=== PATIENT | female | born 1970 | race Hispanic/Latino ===

== ENCOUNTER 2018-02-01 10:51 | Emergency (ER) | payer MEDICAID, OTHER ==
[2018-02-01 11:18] VITALS: BMI 23.3
--- NOTE | 2018-02-01 11:37 | ED PDOC ---
Arrival/HPI - General Chief Complaint: Trauma Time Seen by Provider: 02/01/18 11:35 Historian: Patient - History of Present Illness Narrative History of Present Illness (Text): 02/01/18 11:33 A 47 year old female, with no significant past medical history, whom is accompanied by daughter, presents to the emergency department complaining of right-sided rib pain s/p mechanical fall. Patient reports 2 days ago, having tripped and landing onto right side. Notes experiencing pain when coughing and having difficulty getting up. Patient denies any LOC, head trauma, abdominal pain, nausea, vomiting, difficulty ambulating, or any other complaints at this time. No PMD Time/Duration: < week (2 days ago) Symptom Onset: Sudden Symptom Course: Unchanged Past Medical History - Provider Review Nursing Documentation Reviewed: Yes - Infectious Disease Hx of Infectious Diseases: None - Tetanus Immunization Tetanus Immunization: Unknown - Psychiatric Hx Depression: No Hx Emotional Abuse: No Hx Physical Abuse: No Hx Substance Use: No - Surgical History Other/Comment: kidney stone removal 20 years ago - Anesthesia Hx Anesthesia: Yes Hx Anesthesia Reactions: No Hx Malignant Hyperthermia: No - Suicidal Assessment Feels Threatened In Home Enviroment: No Family/Social History - Physician Review Nursing Documentation Reviewed: Yes Family/Social History: No Known Family HX Smoking Status: Never Smoked Hx Alcohol Use: No Hx Substance Use: No Allergies/Home Meds Allergies/Adverse Reactions: Allergies No Known Allergies Allergy (Verified 09/10/13 09:55) Review of Systems - Physician Review All systems were reviewed & negative as marked: Yes - Review of Systems Constitutional: absent: Other (no head trauma) Eyes: absent: Vision Changes ENT: absent: Hearing Changes Respiratory: absent: SOB, Cough, Sputum, Wheezing Cardiovascular: Chest Pain (R rib pain). absent: Palpitations, Edema, Calf Pain , SIDDIQUI, Orthopnea, Syncope Gastrointestinal: absent: Abdominal Pain, Constipation, Diarrhea, Nausea, Vomiting Skin: absent: Rash Neurological: absent: Headache, Dizziness, Focal Weakness, Speech Changes, Facial Droop, Disequilibrium, Other (no LOC) Hemo/Lymphatic: absent: Adenopathy, Easy Bleeding, Easy Bruising Physical Exam Vital Signs Temp Pulse Resp BP Pulse Ox 02/01/18 13:56 70 18 128/77 98 02/01/18 11:52 98.1 F 66 16 110/72 Temperature: Afebrile Blood Pressure: Normal Pulse: Regular Respiratory Rate: Normal Appearance: Positive for: Well-Appearing, Non-Toxic, Comfortable Pain Distress: None Mental Status: Positive for: Alert and Oriented X 3 - Systems Exam Head: Present: Atraumatic, Normocephalic Pupils: Present: PERRL Extroacular Muscles: Present: EOMI Conjunctiva: Present: Normal Mouth: Present: Moist Mucous Membranes Neck: Present: Normal Range of Motion Respiratory/Chest: Present: Clear to Auscultation, Good Air Exchange, Tender to Palpation (R chest ana luisa). No: Respiratory Distress, Accessory Muscle Use Cardiovascular: Present: Regular Rate and Rhythm, Normal S1, S2. No: Murmurs Abdomen: No: Tenderness, Distention, Rebound, Guarding Upper Extremity: Present: Normal Inspection Lower Extremity: Present: Normal Inspection Neurological: Present: GCS=15, CN II-XII Intact, Speech Normal, Motor Func Grossly Intact, Normal Sensory Function Psychiatric: Present: Alert, Oriented x 3, Normal Insight, Normal Concentration Medical Decision Making ED Course and Treatment: 02/01/18 11:46 Impression: 47 year old female with right-sided rib pain s/p mechanical fall. Physical exam shows right posterior rib tenderness. Plan: -- Right Rib X-Ray -- Percocet -- Reassess and disposition Progress Notes: 02/01/18 13:19 Acute nondisplaced fractures in the right lateral 10th rib and posterior 11th rib. No pneumothorax or pleural effusion. Patient reports that pain is resolved after percocet. She was given incentive spirometer. She was given detailed return instructions and discharged with pain medication and spirometer. - RAD Interpretation Radiology Orders: 02/01/18 11:43 RIBS RIGHT & PA CHEST [RAD] Stat - Medication Orders Current Medication Orders: Discontinued Medications Oxycodone/Acetaminophen (Percocet 5/325 Mg Tab) 1 tab PO STAT STA Stop: 02/01/18 11:44 Last Admin: 02/01/18 12:08 Dose: 1 tab [facility] Pain Assessment Document 02/01/18 12:08 JESIKA (Rec: 02/01/18 12:08 [email or web address] [id number]) Pain Reassessment Is this a pain reassessment? No Sleep Is patient sleeping during reassessment? No Presence of Pain Presence of Pain Yes Re-Assess: [facility] Pain Assessment Document 02/01/18 13:08 JESIKA (Rec: 02/01/18 13:54 [email or web address] [id number]) Pain Reassessment Is this a pain reassessment? No Sleep Is patient sleeping during reassessment? No Presence of Pain Presence of Pain Yes Description Description Intermittent Intensity of Pain at present 3 - Scribe Statement The provider has reviewed the documentation as recorded by the Corky Goldsmith Provider Scribe Attestation: All medical record entries made by the Scribe were at my direction and personally dictated by me. I have reviewed the chart and agree that the record accurately reflects my personal performance of the history, physical exam, medical decision making, and the department course for this patient. I have also personally directed, reviewed, and agree with the discharge instructions and disposition. Disposition/Present on Arrival - Present on Arrival Any Indicators Present on Arrival: No History of DVT/PE: No History of Uncontrolled Diabetes: No Urinary Catheter: No History of Decub. Ulcer: No History Surgical Site Infection Following: None - Disposition Have Diagnosis and Disposition been Completed?: Yes Diagnosis: Rib fractures Disposition: HOME/ ROUTINE Disposition Time: 13:19 Patient Plan: Discharge Patient Problems: Current Active Problems Problem Status Onset Rib fractures Acute Condition: GOOD Discharge Instructions (ExitCare): Rib Fractures in Adults, Rib Fracture (DC) Additional Instructions: Use incentive spirometer. Take percocet as needed. Motrin for more mild pain. Follow-up with PMD within 2 days. Return to ED if condition worsens. Prescriptions: oxyCODONE/Acetaminophen [Percocet 5/325 mg Tab] 1 ea PO Q6 #18 tab Referrals: Rahat Espinoza, [Primary Care Provider] - Follow up with primary Forms: [employer] ([place])
[2018-02-01] MEDS ORDERED: Oxycodone/Acetaminophen 5/325 mg Tab PO STA (11:43)
[2018-02-01 11:54] VITALS: TEMP 98.1
--- NOTE | 2018-02-01 13:19 | RAD ---
PROCEDURE: Radiographs of the Chest and Right Ribs. HISTORY: R rib pain after fall COMPARISON: None available. TECHNIQUE: Frontal radiograph of the chest and multiple oblique radiographs of the right ribs were obtained. FINDINGS: RIGHT RIBS: There are acute nondisplaced fractures in the right lateral 10th rib and posterior 11th rib. Bone alignment and mineralization are normal. LUNGS: The lungs are well inflated and clear. PLEURA: No pneumothorax or pleural fluid. CARDIOVASCULAR: Normal sized heart. No pulmonary vascular congestion. OTHER FINDINGS: None. IMPRESSION: Acute nondisplaced fractures in the right lateral 10th rib and posterior 11th rib. No pneumothorax or pleural effusion.
[2018-02-01 13:57] VITALS: BP 128/77; PULSE 70; RESP 18; O2SAT 98
== END 2018-02-01 14:11 | disposition home or self-care (01) ==
LOC: ED 10:51
DX: S22.41XA Multiple fractures of ribs, right side, initial encounter for closed fracture (principal); W01.0XXA Fall on same level from slipping, tripping and stumbling without subsequent striking against object, initial encounter; Y92.9 Unspecified place or not applicable

== ENCOUNTER 2018-12-05 10:44 | Outpatient (CLI) | payer OTHER | END 2018-12-05 10:45 | disposition home or self-care (01) | LOC: LAB 10:44 | DX: B17.9 Acute viral hepatitis, unspecified (principal) ==

== ENCOUNTER 2018-12-12 07:39 | Outpatient (CLI) | payer OTHER | END 2018-12-12 07:40 | disposition home or self-care (01) | LOC: RAD 07:39 ==